=== PATIENT | female | born 1990 | race Caucasian/White ===

== ENCOUNTER 2018-10-10 10:17 | Emergency (ER) | payer BC ==
--- NOTE | 2018-10-10 11:11 | ED ---
Headache - HPI Summary HPI Summary: This patient is a 28 year old F presenting to [facility] with a chief complaint of constant, sharp, diffuse LUX since 12 days ago. The patient rates the pain 8/10 in severity. Symptoms not alleviated by Topamax. Patient reports difficulty doing daily activities, intermittent nausea, and photophobia. Patient denies numbness in extremities, visual changes, or neck pain. The patient rubs her head to try to make the pain better. She was given Z pack and Amoxicillin for a sinus infection three weeks ago. She has not had a LUX like this before. 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 The patient was placed on control pills a couple months ago and she has not had a menstrual period since. No chance of per patient. PMHX several eye surgeries. FHX migraines, mother. RX Fluoxetine, Topamax. - History Of Current Complaint Chief Complaint: EDHeadache Stated Complaint: MIGRAINE FOR 12 DAYS PER PT Time Seen by Provider: 10/10/18 11:04 Hx Obtained From: Patient Onset/Duration: Gradual Onset, Started weeks ago Currently Pain Is: Severe - 8/10 Character: Sharp Location of Headache: Diffuse Associated Signs And Symptoms: Nausea - Allergies/Home Medications Allergies/Adverse Reactions: Allergies Allergy/AdvReac Type Severity Reaction Status Date / Time No Known Allergies Allergy Verified 10/10/18 10:31 Home Medications: Home Medications FLUoxetine CAP* [Prozac CAP*] 10 mg PO DAILY 10/10/18 [History Confirmed ] Loratadine 10 mg PO DAILY 10/10/18 [History Confirmed 10/10/18] Topiramate [Topamax] 50 mg PO DAILY 10/10/18 [History Confirmed 10/10/18] PMH/Surg Hx/FS Hx/Imm Hx Sensory History: Denies: Hx Deafness Opthamlomology History: Reports: Other Sensory Impairments - several eye surgeries Neurological History: Reports: Hx Headaches Infectious Disease History: No Infectious Disease History: Denies: Traveled Outside the [place] in Last 30 Days - Family History Known Family History: Positive: Other - migraines, mother - Social History Lives: Alone Review of Systems Positive: Photophobia. Negative: Blurred Vision Positive: Nausea Negative: Myalgia - neck pain Positive: Headache. Negative: Numbness All Other Systems Reviewed And Are Negative: Yes Physical Exam - Summary Physical Exam Summary: Appearance: well appearing, no pain distress Skin: warm, dry, reflects adequate perfusion Head/face: normal. Reproducible pain in her left forehead over the supraorbital notch. Globes are soft. No meningismus. Eyes: EOMI, ANI ENT: mucous membranes moist Neck: supple, non-tender Respiratory: CTA, breath sounds present Cardiovascular: RRR, pulses symmetrical Abdomen: non-tender, soft Bowel Sounds: present Musculoskeletal: normal, strength/ROM intact Neuro: normal, sensory motor intact, A&Ox3 Triage Information Reviewed: Yes Vital Signs On Initial Exam: Initial Vitals Temp Pulse Resp BP Pulse Ox 98.8 F 86 16 146/91 100 10/10/18 10:31 10/10/18 10:31 10/10/18 10:31 10/10/18 10:31 10/10/18 10:31 Vital Signs Reviewed: Yes Procedures - Procedure Summary Procedure Summary: Supraorbital nerve block and cervical block for headache: The area at the supraorbital notch on the left side was cleaned with alcohol and injected with a total of 1 cc of 0.5% bupivacaine with epinephrine. A cervical block was then performed in the posterior neck at the level of C5 1.5 centimeters off midline with total injections of 1.5 cc on each side. This greatly reduced her headache. She tolerated this well without complication. Diagnostics - Vital Signs Vital Signs Temp Pulse Resp BP Pulse Ox 10/10/18 10:31 98.8 F 86 16 146/91 100 - Laboratory Result Diagrams: 10/10/18 11:29 10/10/18 11:29 Lab Statement: Any lab studies that have been ordered have been reviewed, and results considered in the medical decision making process. - CT CTA head CT Interpretation Completed By: Radiologist Summary of CT Findings: NO ANEURYSM, VASCULAR MALFORMATION, OCCLUSION, OR STENOSIS OF THE VISUALIZED INTRACRANIAL. CIRCULATION. NO VENOUS SINUS THROMBOSIS OR OCCLUSION. ED physician has reviewed this report Headache Course/Dx - Course Course Of Treatment: Nurse's notes reviewed. Patient reports constant headache that moves about her head for the last 12 days. This was preceded by a sinus infection. CTA with venogram was performed of her head which ruled out any aneurysm or venous sinus thrombosis. A trigger point injection and cervical block was performed and relieved her headache significantly. She will be started on promethazine here and continued on same outpatient. Neurology referral given. - Diagnoses Differential Diagnosis/HQI/PQRI: Subdural Hematoma, Migraine, Sinus Headache, Tension Headache, Other - Venous sinus thrombosis Provider Diagnoses: Acute headache Discharge - Sign-Out/Discharge Documenting (check all that apply): Patient Departure - discharge Patient Received Moderate/Deep Sedation with Procedure: No - Discharge Plan Condition: Improved Disposition: HOME Prescriptions: Promethazine TAB* [Phenergan Tab*] 25 mg PO Q8H PRN #20 tab PRN Reason: headache/nausea Patient Education Materials: Acute Headache (ED) Referrals: Jose Kerns MD [Medical Doctor] - Marisol Tabares [Primary Care Provider] - Additional Instructions: Stay well-hydrated. Prescribed medication can cause drowsiness. If headache persists despite the medication you may use ibuprofen, Benadryl 1-2 tablets, caffeine and a glass of water. Return with severe headaches, vomiting, worse or other concerns. Call the neurologist tomorrow to schedule prompt follow-up. - Billing Disposition and Condition Condition: IMPROVED Disposition: Home - Attestation Statements Document Initiated by Asim: Yes Documenting Scribe: Brad Lucas Provider For Whom Asim is Documenting (Include Credential): Duarte Montoya MD Scribe Attestation: Brad Montero, scribed for Duarte Montoya MD on 10/10/18 at 1823. Scribe Documentation Reviewed: Yes Provider Attestation: The documentation as recorded by the Brad thorne accurately reflects the service I personally performed and the decisions made by me, Duarte Montoya MD Status of Scribe Document: Viewed
[2018-10-10] MEDS ORDERED: Bupivacaine 0.5% W/EPI SDV* 30 ML VIAL INJ ONE (11:15)
[2018-10-10 11:35] LABS: ABS Basophils 0 10^3/ul (0-0.2); ABS Eosinophils 0.1 10^3/ul (0-0.6); ABS Lymphocytes 2.7 10^3/ul (1.0-4.8); ABS Monocytes 0.6 10^3/ul (0-0.8); ABS Neutrophils 4.3 10^3/ul (1.5-7.7); ABS Nucleated RBC 0 10^3/ul; Eosinophil % 1.3 %; Hematocrit 41 % (33-41); Hemoglobin 13.6 g/dL (12.0-16.0); Lymphocyte % 34.8 %; Mean Corpuscular HGB Conc 33 g/dL (31-36); Mean Corpuscular Hemoglobin 29 pg (27-31); Mean Corpuscular Volume 87 fL (80-97); Mean Platelet Volume 8.2 fL (7.4-10.4); Nucleated Red Blood Cells % 0.1; Platelet Count 249 10^3/uL (150-450); Red Blood Count 4.76 10^6 /uL (3.70-4.87); Red Cell Distribution Width 13 % (10.5-15); White Blood Count 7.7 10^3/uL (3.5-10.8)
[2018-10-10 11:50] LABS: Anion Gap 8 mmol/L (2-11); BUN/Creatinine Ratio 15.6 (8-20); Blood Urea Nitrogen 12 mg/dL (6-24); CO2 Carbon Dioxide 23 mmol/L (22-32); Calcium 9.4 mg/dL (8.6-10.3); Chloride 108 mmol/L (101-111); EGFR African American 109.6 (>60); EGFR Non-African American 90.6 (>60); Glucose 88 mg/dL (70-100); Potassium 3.9 mmol/L (3.5-5.0); Sodium 139 mmol/L (135-145)
[2018-10-10] MEDS ORDERED: Iohexol 350* (CONTRAST) 500 ML MDV IV ONE (11:54)
[2018-10-10 11:58] LABS: HCG Pregnancy < 0.60 mIU/mL
[2018-10-10] MEDS ORDERED: Promethazine TAB* 25 MG PO ONE (12:34)
[2018-10-10 13:00] VITALS: BP 124/79
== END 2018-10-10 13:00 | disposition home or self-care (01) ==
LOC: ED 10:17
DX: R51 Headache (principal)
CPT/HCPCS: 36415; 70496; 80048; 84702; 85025; 96374; 96375; 99282; Q9967